=== PATIENT | female | born 1990 ===

== ENCOUNTER 2018-05-26 00:22 | Emergency (ER) | payer SELFPAY ==
[2018-05-26] MEDS ORDERED: BENADRYL ONE (00:37)
[2018-05-26] MEDS ORDERED: PEPCID IV ONE ×2 (00:38→00:54)
[2018-05-26] MEDS ORDERED: BENADRYL IV ONE (00:53)
[2018-05-26] MEDS ORDERED: NACL 0.9% 500 ML 500 ML IV ONE (00:58)
[2018-05-26] MEDS ORDERED: TYLENOL PO ONE (01:59)
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
[2018-05-26 03:41] VITALS: BP 109/68
== END 2018-05-26 03:49 | disposition home or self-care (01) ==
LOC: ED 00:22
DX: O26.892 Other specified pregnancy related conditions, second trimester (principal); T65.91XA Toxic effect of unspecified substance, accidental (unintentional), initial encounter; T78.2XXA Anaphylactic shock, unspecified, initial encounter; Z3A.20 20 weeks gestation of pregnancy; Y92.89 Other specified places as the place of occurrence of the external cause
CPT/HCPCS: 96374; 96375; 99291; J1200; J2930; J7040

== ENCOUNTER 2019-08-04 16:49 | Emergency (ER) | payer MEDICAID, OTHER | END 2019-08-04 17:00 | disposition left against medical advice (07) | LOC: ED 16:49 | DX: F41.9 Anxiety disorder, unspecified (principal); Z53.21 Procedure and treatment not carried out due to patient leaving prior to being seen by health care provider ==

== ENCOUNTER 2020-04-29 20:47 | Emergency (ER) | payer MEDICAID, OTHER ==
--- NOTE | 2020-04-29 21:18 | Emergency Department Report ---
<IGOR RAY - Last Filed: 05/01/20 16:39> ED Psych HPI - General Chief Complaint: Psych Stated Complaint: MH/HEARING VOICES Time Seen by Provider: 04/29/20 21:05 Source: patient, EMS Mode of arrival: Ambulatory - History of Present Illness Initial Comments: Patient is 29 years old female with history of schizophrenia. Patient brought to the emergency room via EMS for evaluation of altered mental status. Patient with significant auditory and visual hallucination. EMS stated that there is a possibility of methamphetamine intoxication. During my interview with the patient patient kept talking to herself and looking around. Patient is ob viously responding to internal stimuli. Patient denied any suicidal or homicidal ideation. MD Complaint: altered mental status -: unknown Associated Psychiatric Symptoms: racing thoughts, auditory hallucinations, visual hallucinations - Related Data Previous Rx's Medication Instructions Recorded Last Taken Type Divalproex Dr [DepaKOTE DR] 125 mg PO BID #60 tablet 05/02/20 Unknown Rx Sulfamethoxazole/Trimethoprim 1 each PO Q12HR #7 tablet 05/02/20 Unknown Rx [Bactrim DS TAB] risperiDONE [RisperDAL] 0.25 mg PO BID #60 tab 05/02/20 Unknown Rx traZODone [Desyrel] 50 mg PO QHS #30 tab 05/02/20 Unknown Rx Allergies Allergy/AdvReac Type Severity Reaction Status Date / Time No Known Allergies Allergy Unverified 05/26/18 00:29 ED Review of Systems Comment: Unobtainable due to pts medical conditions ED Past Medical Hx - Past Medical History Hx Psychiatric Treatment: Yes (drug abuse, bipolar, schizophrenia) Hx Asthma: Yes Additional medical history: anxiety. manic depression. post depression - Surgical History Past Surgical History?: Yes Additional Surgical History: x 1. T&A - Social History Smoking Status: Current Every Day Smoker Substance Use Type: Alcohol, Methamphetamines - Medications Home Medications: Home Medications Medication Instructions Recorded Confirmed Last Taken Type Divalproex Dr [DepaKOTE DR] 125 mg PO BID #60 tablet 05/02/20 Unknown Rx Sulfamethoxazole/Trimethoprim 1 each PO Q12HR #7 tablet 05/02/20 Unknown Rx [Bactrim DS TAB] risperiDONE [RisperDAL] 0.25 mg PO BID #60 tab 05/02/20 Unknown Rx traZODone [Desyrel] 50 mg PO QHS #30 tab 05/02/20 Unknown Rx ED Physical Exam - General Limitations: Altered Mental Status General appearance: alert, in no apparent distress, anxious - Head Head exam: Present: atraumatic, normocephalic, normal inspection - Eye Eye exam: Present: normal appearance - ENT ENT exam: Present: normal exam, normal orophraynx, mucous membranes moist - Neck Neck exam: Present: normal inspection, full ROM. Absent: tenderness, meningismus, lymphadenopathy, thyromegaly - Respiratory Respiratory exam: Present: normal lung sounds bilaterally - Cardiovascular Cardiovascular Exam: Present: regular rate, normal rhythm, normal heart sounds - GI/Abdominal GI/Abdominal exam: Present: soft, normal bowel sounds. Absent: distended, ten derness, guarding, rebound, rigid, organomegaly, bruit, hernia - Extremities Exam Extremities exam: Present: normal inspection, full ROM, normal capillary refill. Absent: pedal edema, calf tenderness - Back Exam Back exam: Present: normal inspection, full ROM. Absent: CVA tenderness (R), CVA tenderness (L) - Neurological Exam Neurological exam: Present: alert, oriented X3, CN II-XII intact, normal gait, reflexes normal. Absent: motor sensory deficit - Psychiatric Psychiatric exam: Present: anxious. Absent: homicidal ideation, suicidal ideation - Skin Skin exam: Present: warm, intact, normal color ED Medical Decision Making - Lab Data Result diagrams: 04/29/20 21:11 04/29/20 21:11 ED Disposition Clinical Impression: Schizophrenia, Methamphetamine abuse, UTI (urinary tract infection) Disposition: TO HOME OR SELFCARE Condition: Stable Instructions: Schizophrenia (ED), Urinary Tract Infection in Women (ED), Methamphetamine Abuse (ED) Additional Instructions: Take the medication as prescribed. Follow-up with your doctor or doctor/clinic provided. Return if symptoms worsen as indicated by your discharge instructions. Prescriptions: Sulfamethoxazole/Trimethoprim [Bactrim DS TAB] 1 each PO Q12HR #[address] [DepaKOTE DR] 125 mg PO BID #60 tablet traZODone [Desyrel] 50 mg PO QHS #30 tab risperiDONE [RisperDAL] 0.25 mg PO BID #60 tab Referrals: SVEN CRUZ MD [Primary Care Provider] - 3-5 Days CARBUCCIA,KE, MD [Staff Physician] - 3-5 Days [facility] [Provider Group] - 3-5 Days [facility] [Outside] - 3-5 Days <JOAO ROBERT - Last Filed: 05/02/20 13:28> ED Review of Systems ROS: Stated complaint: MH/HEARING VOICES Other details as noted in HPI ED Course Vital Signs 04/29/20 04/30/20 04/30/20 20:57 01:04 09:11 Temperature 98.3 F 99.2 F Pulse Rate 72 90 78 Respiratory 20 18 18 Rate Blood Pressure 147/96 Blood Pressure 109/88 129/80 [Left] O2 Sat by Pulse 98 98 98 Oximetry 04/30/20 04/30/20 05/01/20 15:29 20:02 02:05 Temperature 98.4 F 98.1 F 98.0 F Pulse Rate 106 H 108 H 92 H Respiratory 18 18 18 Rate Blood Pressure Blood Pressure 113/74 128/83 120/60 [Left] O2 Sat by Pulse 98 97 98 Oximetry 05/01/20 05/01/20 05/01/20 07:33 16:28 19:38 Temperature 97.4 F L 98.2 F 97.8 F Pulse Rate 104 H 98 H 107 H Respiratory 104 H 18 19 Rate Blood Pressure Blood Pressure 90/54 95/71 114/65 [Left] O2 Sat by Pulse 100 98 98 Oximetry 05/02/20 05/02/20 01:16 09:34 Temperature 97.6 F 98.4 F Pulse Rate 73 97 H Respiratory 16 16 Rate Blood Pressure Blood Pressure 99/60 114/66 [Left] O2 Sat by Pulse 100 97 Oximetry - Reevaluation(s) Reevaluation #1: 05/02/20 13:28 Patient does not qualify for inpatient psychiatric treatment and will be discharged with meds for UTI and psychiatric medications as prescribed by mental nurse practitioner ED Medical Decision Making - Lab Data Result diagrams: 04/29/20 21:11 04/29/20 21:11 Critical care attestation.: If time is entered above; I have spent that time in minutes in the direct care of this critically ill patient, excluding procedure time. ED Disposition Is pt being admited?: No Does the pt Need Aspirin: No Time of Disposition: 13:27
[2020-04-29 21:25] LABS: Basophils # (Auto) 0.1 K/mm3 (0.0-0.1); Basophils % (Auto) 0.8 % (0.0-1.8); Eosinophils % (Auto) 0.4 % (0.0-4.3); Hematocrit 38.8 % (30.3-42.9); Hemoglobin 12.9 gm/dl (10.1-14.3); Lymphocytes # (Auto) 2.2 K/mm3 (1.2-5.4); Lymphocytes % (Auto) 23.4 % (13.4-35.0); Mean Corpuscular HGB Conc 33 % (30-34); Mean Corpuscular Volume 78 fl (79-97); Monocytes # (Auto) 0.8 K/mm3 (0.0-0.8); Monocytes % (Auto) 8.6 % (0.0-7.3); Platelet Count 304 K/mm3 (140-440); Red Blood Count 4.98 M/mm3 (3.65-5.03); Red Cell Distribution Width 15.9 % (13.2-15.2)
[2020-04-29 21:49] LABS: BUN/Creatinine Ratio 20; Blood Urea Nitrogen 14 mg/dL (7-17); Calcium 9.7 mg/dL (8.4-10.2); Hemolysis Index 11
[2020-04-30 00:26] LABS: Bacteria,Urine 1+ /HPF (Negative); Bilirubin,Urine NEG (Negative); Blood,Urine NEG (Negative); Color,Urine Yellow (Yellow); Mucus,Urine FEW /HPF; Urobilinogen,Urine < 2.0 mg/dL (<2.0)
[2020-04-30 00:36] LABS: Benzodiazepines Screen,Urine PRESUMPTIVE NEGATIVE; Cannabinoid Screen,Urine PRESUMPTIVE NEGATIVE; Cocaine Screen,Urine PRESUMPTIVE NEGATIVE; Methadone Screen,Urine PRESUMPTIVE NEGATIVE; Opiate Screen,Urine PRESUMPTIVE NEGATIVE
[2020-04-30 01:07] LABS: Amphetamine Screen,Urine PRESUMPTIVE POSITIVE
[2020-04-30] MEDS ORDERED: POTASSIUM CHLORIDE ER 20 MEQ TAB PO ONE ×2 (02:05→11:53)
[2020-04-30] MEDS: SULFAMETHOXAZOLE/TRIMETHOPRIM 800/160MG DS TAB PO SCH ×2 (11:00→21:40)
[2020-04-30] MEDS ORDERED: LORazepam 2 MG/ML VIAL IM ONE (19:03)
[2020-04-30] MEDS ORDERED: LORazepam 2 MG/ML VIAL IV ONE (19:03)
[2020-04-30] MEDS ORDERED: LORazepam 2 MG/ML VIAL ONE (19:05)
[2020-04-30] MEDS ORDERED: IBUPROFEN 600 MG TAB PO ONE ×2 (20:33→20:35)
[2020-04-30] MEDS ORDERED: diphenhydrAMINE 25 MG CAP PO ONE ×2 (21:37→21:39)
[2020-05-01] MEDS: risperiDONE 0.25 MG TAB PO SCH ×2 (11:00→21:46)
[2020-05-01] MEDS: DIVALPROEX DR 125 MG TAB PO SCH ×3 (11:00→21:44)
[2020-05-01] MEDS: SULFAMETHOXAZOLE/TRIMETHOPRIM 800/160MG DS TAB PO SCH ×2 (11:00→21:45)
--- NOTE | 2020-05-01 11:22 | Consultation ---
History of Present Illness - Reason for Consult Consult date: 05/01/20 Reason for consult: meth induced psychosis - History of Present Psychiatric Illness The patient's medical record was reviewed and the patient's progress was discussed with the nursing staff. The nurse caring for the patient today, states the patient was down last night and crying uncontrollably. She says the patient wouldn't say why she was down. Fabienne Snyder is a 29y/o female who came into the ER for altered mental status with auditory and visual hallucinations, per chart. I attempted to interview the patient his morning, she was lying down sleeping. She arouses but kept her eyes closed. She would not speak or answer any of the interview questions. PAST PSYCHIATRIC HISTORY Unable to obtain PAST MEDICAL HISTORY: Unable to obtain Family Psychiatric History: Unable to obtain SOCIAL HISTORY Unable to obtain ROS Unable to assess MENTAL STATUS EXAMINATION Unable to assess Assessment and Plan Substance Induced Mood Disorder RECOMMENDATIONS MEDICATIONS Risperidone 0.25mg po BID Depakote DR 125mg po BID Trazodone 50mg po qhs Vistaril 25mg po q6h prn anxiety Geodon 10mg IM q4h prn agitation Risks, benefits and alternatives of medications discussed with the patient, questions answered and consent obtained from patient. PSYCHOTHERAPY: Supportive psychotherapy provided MEDICAL: Per primary team DELIRIUM PRECAUTIONS: Please re-orient patient frequently, keep lights on during the day, and minimize benzodiazepines and opiates as these medications could worsen patient's confusion. PUPIL PERSONNEL SERVICES DIRECTOR: Per medical team DISPOSITION: The patient meets the requirement for acute inpatient psychiatric treatment. She may transfer to an acute facility once medically clear Will continue to follow until the patient is transferred or improves enough for discharge. Thank you for the consult. Please contact with any questions and/or concerns Medications and Allergies Allergies Allergy/AdvReac Type Severity Reaction Status Date / Time No Known Allergies Allergy Unverified 05/26/18 00:29 Home Medications Medication Instructions Recorded Confirmed Last Taken Type Unobtainable 04/30/20 04/30/20 Unknown History Active Meds: Active Medications Trimethoprim/Sulfamethoxazole (Bactrim Ds) 1 each PO Q12HR KAIRNA Last Admin: 04/30/20 21:40 Dose: 1 each Documented by: Mental Status Exam - Vital signs Last Vital Signs Temp 97.4 F L 05/01/20 07:33 Pulse 104 H 05/01/20 07:33 Resp 104 H 05/01/20 07:33 BP 90/54 05/01/20 07:33 Pulse Ox 100 05/01/20 07:33 Results Result Diagrams: 04/29/20 21:11 04/29/20 21:11 All other labs normal.
[2020-05-01] MEDS ORDERED: ZIPRASIDONE MESYLATE 20 MG VIAL IM PRN (11:27)
[2020-05-01] MEDS ORDERED: hydrOXYzine PAMOATE 25 MG CAP PO PRN (11:31)
[2020-05-01] MEDS ORDERED: traZODone 50 MG TAB PO SCH (22:00)
[2020-05-02 09:36] VITALS: BP 114/66
[2020-05-02] MEDS: SULFAMETHOXAZOLE/TRIMETHOPRIM 800/160MG DS TAB PO SCH (11:04)
[2020-05-02] MEDS: DIVALPROEX DR 125 MG TAB PO SCH (11:04)
[2020-05-02] MEDS: risperiDONE 0.25 MG TAB PO SCH (11:05)
--- NOTE | 2020-05-02 11:26 | Progress Note ---
Subjective - Reason for Consult Consult date: 05/02/20 Reason for consult: meth induced psychosis - Chief Complaint Chief complaint: During my interview with the patient this morning, she is lying down asleep. She easily arouses. She is a/o x 3. She is avoidant. She is irritable. She turns her head when I'm speaking to her or places the linen over her head. She says, "I'm tired and I'm trying to sleep." She describes her mood as "okay." She denies SI/HI or any thoughts of dying. She also denies hallucinations of any kind. When informing the patient that she would be going home today, the patient replies, "I don't care. I'm trying to sleep." ROS Constitutional: Negative for weight loss EMT: Negative for stridor Respiratory: Negative for cough or hemoptysis All other systems reviewed and are negative MENTAL STATUS EXAMINATION General Appearance: Dressed Appropriately Behavior: Avoidant. Irritable. Mood: "okay" Affect: Congruent with stated mood Speech: Normal pace and tone Thought Process: Goal oriented Suicidal Ideation: Denies Homicidal Ideation: Denies Hallucinations: Denies Delusions: None elicited Insight and Judgment: Limited Memory/Cognition: Limited Assessment and Plan Drug Induced Mood Disorder RECOMMENDATIONS D/c 1013 MEDICATIONS Risperidone 0.25mgm po BID Trazodone 50mg po qhs Depakote DR 125mg po BID Risks, benefits and alternatives of medications discussed with the patient, questions answered and consent obtained from patient. PSYCHOTHERAPY: Supportive psychotherapy provided MEDICAL: Per primary team DELIRIUM PRECAUTIONS: Please re-orient patient frequently, keep lights on during the day, and minimize benzodiazepines and opiates as these medications could worsen patient's confusion. PHARMACEUTICAL BOTANIST: Per medical team DISPOSITION: The patient does not meet the requirement for acute inpatient psychiatric treatment. She may discharge home once medically clear. She understa nds that if suicidal thoughts or feelings of endangerment are to arise she is to seek immediate assistance including but not limited to the crisis hotline, 911 and/or ER. She is to abstain from all illicit drug use. The log operations coordinator is to further discuss safety plan with the patient and give her resources for outpatient psychiatry, cognitive behavior therapy and drug rehabilitation programs. The treatment plan was discussed with the patient, including benefits of medications and possible side effects. The patient verbalizes understanding. Will sign off. Thank you for the consult. Please contact with any questions and/or concerns. Mental Status Exam - Vital signs Last Vital Signs Temp 98.4 F 05/02/20 09:34 Pulse 97 H 05/02/20 09:34 Resp 16 05/02/20 09:34 BP 114/66 05/02/20 09:34 Pulse Ox 97 05/02/20 09:34
== END 2020-05-02 14:06 | disposition home or self-care (01) ==
LOC: EEVIPCON 20:47 → ED 20:47
DX: F20.89 Other schizophrenia (principal); N39.0 Urinary tract infection, site not specified; F15.10 Other stimulant abuse, uncomplicated; J45.909 Unspecified asthma, uncomplicated; F41.9 Anxiety disorder, unspecified; F17.200 Nicotine dependence, unspecified, uncomplicated; Z98.890 Other specified postprocedural states
CPT/HCPCS: 36415; 80048; 80307; 81001; 84703; 85025; 87086; 96372; 99283; J2060; 80320; G0480; Q0177

== ENCOUNTER 2022-05-20 09:50 | Emergency (ER) | payer SELFPAY ==
[2022-05-20] MEDS ORDERED: HALOPERIDOL LACTATE 5 MG/1 ML INJ ONE (16:18)
[2022-05-20] MEDS ORDERED: diphenhydrAMINE 50 MG/ML VIAL ONE (16:18)
[2022-05-20] MEDS ORDERED: LORazepam 2 MG/ML VIAL ONE (16:18)
[2022-05-20] MEDS ORDERED: diphenhydrAMINE 50 MG/ML VIAL IM ONE (16:22)
[2022-05-20] MEDS ORDERED: HALOPERIDOL LACTATE 5 MG/1 ML INJ IM PRN (16:22)
[2022-05-20] MEDS ORDERED: LORazepam 2 MG/ML VIAL IM PRN (16:22)
--- NOTE | 2022-05-20 16:33 | Emergency Department Report ---
ED General Adult HPI - General Chief complaint: Psych Stated complaint: KIDNEY INFECTION/DEPRESSION Time Seen by Provider: 05/20/22 16:22 Source: patient, RN notes reviewed, old records reviewed Mode of arrival: Ambulatory Limitations: Other (Acute psychosis) - History of Present Illness Initial comments: The patient was evaluated in the emergency department for symptoms described in the history of present illness. He/she was evaluated in the context of the global COVID-19 pandemic, which necessitated consideration that the patient might be at risk for infection with the virus that causes COVID-19. Institutional protocols and algorithms that pertain to the evaluation of patients at risk for COVID-19 are in a state of rapid change based on info rmation released by regulatory bodies including the CDC and federal and state organizations. These policies and algorithms were followed during the patient's care in the emergency department. Please note that these policies, procedures and recommendations changed on a rapid basis. This is a 31-year-old female. She presents as acutely psychotic. She is accompanied by her grandmother Ms. Berman; [phone]. Her grandmother endorses that the patient has a history of bipolar, psychosis, and m ethamphetamine abuse. The patient has been with her grandmother for about 2 days, and has been acting psychotic. The patient is noncompliant with her medications as per her grandmother. As per her grandmother, there is no trauma, vomiting, diarrhea, cough The patient in emergency room is agitated, belligerent, uncooperative, and psychotic. She does not describe the qualitative nature of her symptoms, exacerbating factors relieving factors or aggravating factors. Review of systems is as per grandmother -: days(s) - Related Data Previous Rx's Medication Instructions Recorded Last Taken Type Divalproex Dr [DepaKOTE DR] 125 mg PO BID #60 tablet 05/02/20 Unknown Rx Sulfamethoxazole/Trimethoprim 1 each PO Q12HR #7 tablet 05/02/20 Unknown Rx [Bactrim DS TAB] risperiDONE [RisperDAL] 0.25 mg PO BID #60 tab 05/02/20 Unknown Rx traZODone [Desyrel] 50 mg PO QHS #30 tab 05/02/20 Unknown Rx Allergies Allergy/AdvReac Type Severity Reaction Status Date / Time No Known Allergies Allergy Unverified 05/26/18 00:29 ED Review of Systems ROS: Stated complaint: KIDNEY INFECTION/DEPRESSION Other details as noted in HPI Comment: Unobtainable due to pts medical conditions (Review of systems as per grandmother) Psychiatric: as per HPI, other (Hallucinations, agitation, psychosis) ED Past Medical Hx - Past Medical History Hx Psychiatric Treatment: Yes (drug abuse, bipolar, schizophrenia) Hx Asthma: Yes Additional medical history: anxiety. manic depression. post depression - Surgical History Additional Surgical History: x 1. T&A - Social History Smoking Status: Current Every Day Smoker Substance Use Type: Alcohol, Methamphetamines - Medications Home Medications: Home Medications Medication Instructions Recorded Confirmed Last Taken Type Divalproex Dr [DepaKOTE DR] 125 mg PO BID #60 tablet 05/02/20 Unknown Rx Sulfamethoxazole/Trimethoprim 1 each PO Q12HR #7 tablet 05/02/20 Unknown Rx [Bactrim DS TAB] risperiDONE [RisperDAL] 0.25 mg PO BID #60 tab 05/02/20 Unknown Rx traZODone [Desyrel] 50 mg PO QHS #30 tab 05/02/20 Unknown Rx ED Physical Exam - General Limitations: Other (Agitation and psychosis) General appearance: anxious - Head Head exam: Present: atraumatic, normocephalic - Eye Eye exam: Present: normal appearance, EOMI. Absent: nystagmus - ENT ENT exam: Present: normal exam, normal orophraynx, mucous membranes moist, normal external ear exam - Neck Neck exam: Present: normal inspection, full ROM. Absent: tenderness, meningismus - Respiratory Respiratory exam: Present: normal lung sounds bilaterally. Absent: respiratory distress, wheezes, rales, rhonchi, stridor, decreased breath sounds - Cardiovascular Cardiovascular Exam: Present: regular rate, normal rhythm, normal heart sounds. Absent: bradycardia, tachycardia, irregular rhythm, systolic murmur, diastolic murmur, rubs, gallop - GI/Abdominal GI/Abdominal exam: Present: soft. Absent: distended, tenderness, guarding, nataliya ound, rigid, pulsatile mass - Extremities Exam Extremities exam: Present: full ROM, other (2+ pulses noted in the bilateral upper and lower extremities. There is no palpable cord. negative Homans sign. Muscular compartments are soft. The pelvis is stable.). Absent: normal inspection (Numerous chronic appearing skin wounds and track flaherty noted), pedal edema, calf tenderness - Back Exam Back exam: Present: normal inspection. Absent: tenderness, CVA tenderness (R), CVA tenderness (L), muscle spasm, paraspinal tenderness, vertebral tenderness - Neurological Exam Neurological exam: Present: normal gait, other (There is no facial droop. The tongue is midline. 5 out of 5 strength in 4 extremities.) - Psychiatric Psychiatric exam: Present: agitated, anxious - Skin Skin exam: Present: warm ED Course Vital Signs 05/20/22 05/20/22 10:22 16:59 Temperature 98.3 F Pulse Rate 98 H Respiratory 18 Rate Blood Pressure 117/87 [Right] O2 Sat by Pulse 100 97 Oximetry - Reevaluation(s) Reevaluation #1: 05/20/22 16:41 Differential diagnosis, including but not limited to: Agitation, psychosis, methamphetamine abuse, overdose, medical clearance for psychiatric placement Assessment and plan: 31-year-old female with known history of psychosis, noncompliance, methamphetamine abuse, presents is acutely psychotic. I have ordered a 1013. Recommended appropriate laboratory studies. Physical examination is noncontributory. Grandmother endorses no history of trauma that she is aware of. Discussed need for 1013 with grandmother, as well as need for chemical and/or physical restraints. Grandmother provides verbal consent for the aforementioned. Reassess after laboratory studies have resulted. Patient required medication with haloperidol, Ativan, and Benadryl 05/20/22 17:49 Patient is reassessed. Examined with deboning team leader Ronit She is eating Jell-O and feels improved. There is no CVA tenderness. Laboratory studies are essentially unremarkable. She is somewhat hemocon centrated, mildly dehydrated, and has mild hypokalemia. Start patient on daily multivitamin, potassium and magnesium supplementation. Urinalysis and drug screen and COVID swab pending. The emergency room will follow along as the patient provides these. Her muscular compartments are soft. Her renal function is unremarkable. I do not suspect rhabdomyolysis at this time. At this point in time, this patient does not appear to have an immediate medical contraindication to psychiatric admission, evaluation, consultation and placement. Contacted patient's grandmother, and advised her of results of laboratory studies. She endorsed understanding. All questions answered 05/20/22 19:49 Urinalysis contaminated with epithelial cells. The patient made no complaint of dysuria to myself. She also has RBCs. This is most likely from menstruation. Would not initiate antibiotics at this ED Medical Decision Making - Lab Data Result diagrams: 05/20/22 16:38 05/20/22 16:38 Vital Signs 05/20/22 10:22 Temperature 98.3 F Pulse Rate 98 H Respiratory 18 Rate Blood Pressure 117/87 [Right] O2 Sat by Pulse 100 Oximetry Labs 05/20/22 05/20/22 05/20/22 16:38 16:38 16:38 WBC 7.2 RBC 5.92 H Hgb 15.5 H Hct 47.1 H MCV 80 MCH 26 L MCHC 33 RDW 18.0 H Plt Count 323 Sodium 137 Potassium 3.2 L Chloride 96.7 L Carbon Dioxide 22 Anion Gap 22 BUN 10 Creatinine 0.7 Estimated GFR > 60 BUN/Creatinine Ratio 14 Glucose 111 H Calcium 10.5 H Total Bilirubin 0.70 AST 15 ALT 11 Alkaline Phosphatase 88 Total Protein 8.5 H Albumin 5.2 H Albumin/Globulin Ratio 1.6 TSH 1.610 HCG, Qual Salicylates Acetaminophen Valproic Acid 05/20/22 05/20/22 05/20/22 16:38 16:38 16:38 WBC RBC Hgb Hct MCV MCH MCHC RDW Plt Count Sodium Potassium Chloride Carbon Dioxide Anion Gap BUN Creatinine Estimated GFR BUN/Creatinine Ratio Glucose Calcium Total Bilirubin AST ALT Alkaline Phosphatase Total Protein Albumin Albumin/Globulin Ratio TSH HCG, Qual Negative Salicylates < 0.3 L Acetaminophen 5.0 L Valproic Acid < 2.8 L Critical care attestation.: If time is entered above; I have spent that time in minutes in the direct care of this critically ill patient, excluding procedure time. ED Disposition Clinical Impression: Psychosis, Methamphetamine abuse, Medical clearance for psychiatric admission, Dehydration, Hypokalemia Disposition: [address] [place] [address] Is pt being admited?: No Does the pt Need Aspirin: No Condition: Good Referrals: PRIMARY CARE, [Primary Care Provider] - 3-5 Days
[2022-05-20 17:00] LABS: Hematocrit 47.1 % (30.3-42.9); Hemoglobin 15.5 gm/dl (10.1-14.3); Mean Corpuscular HGB Conc 33 % (30-34); Mean Corpuscular Volume 80 fl (79-97); Platelet Count 323 K/mm3 (140-440); Red Blood Count 5.92 M/mm3 (3.65-5.03)
[2022-05-20 17:22] LABS: Alanine Aminotransferase 11 units/L (7-56); Albumin 5.2 g/dL (3.9-5); Blood Urea Nitrogen 10 mg/dL (7-17); Calcium 10.5 mg/dL (8.4-10.2); Hemolysis Index 1
[2022-05-20 17:23] LABS: BUN/Creatinine Ratio 14
[2022-05-20] MEDS ORDERED: MULTIVITAMINS ,THERAPEUTIC TAB PO ONE (17:46)
[2022-05-20] MEDS ORDERED: POTASSIUM CHLORIDE ER 20 MEQ TAB PO ONE (17:46)
[2022-05-20] MEDS: MAGNESIUM OXIDE 400 MG TAB PO SCH (18:32)
[2022-05-20 19:23] LABS: Bilirubin,Urine NEG (Negative); Blood,Urine LG (Negative); Color,Urine Red (Yellow)
[2022-05-20 19:32] LABS: Amphetamine Screen,Urine PRESUMPTIVE POSITIVE; Benzodiazepines Screen,Urine PRESUMPTIVE NEGATIVE; Cannabinoid Screen,Urine PRESUMPTIVE POSITIVE; Cocaine Screen,Urine PRESUMPTIVE NEGATIVE; Methadone Screen,Urine PRESUMPTIVE NEGATIVE; Opiate Screen,Urine PRESUMPTIVE NEGATIVE
[2022-05-20 19:37] LABS: Mucus,Urine 3+ /HPF
[2022-05-20 19:41] LABS: RBC,Urine > 182.0 /HPF (0.0-6.0)
[2022-05-20] MEDS: MULTIVITAMINS ,THERAPEUTIC TAB PO SCH (20:00)
[2022-05-21] MEDS: MAGNESIUM OXIDE 400 MG TAB PO SCH (09:51)
[2022-05-21] MEDS: MULTIVITAMINS ,THERAPEUTIC TAB PO SCH (09:51)
[2022-05-21] MEDS ORDERED: POTASSIUM CHLORIDE ER 20 MEQ TAB PO SCH (10:00)
[2022-05-21 10:13] VITALS: BP 93/58
--- NOTE | 2022-05-21 11:22 | Event Note ---
Date: 05/21/22 medically cleared , vss , no events overnight accepted by psyc facility
--- NOTE | 2022-05-21 11:54 | Consultation ---
History of Present Illness - Reason for Consult Consult date: 05/21/22 Reason for consult: mental health evaluation - History of Present Psychiatric Illness HPI: This is a 31-year-old female. She presents as acutely psychotic. She is accompanied by her grandmother Ms. Berman; [phone]. Her grandmother endorses that the patient has a history of bipolar, psychosis, and methamphetamine abuse. The patient has been with her grandmother for about 2 days, and has been acting psychotic. The patient is noncompliant with her medications as per her grandmother. As per her grandmother, there is no trauma, vomiting, diarrhea, cough The patient is a 31 year old female with bipolar and methamphetamine abuse. The patient was seen today. She is alert and oriented to self. She is not cooperative with assessment, she is refusing to answer questions. PAST PSYCHIATRIC HISTORY PAST MEDICAL HISTORY: none reported Family Psychiatric History: None reported or documented SOCIAL HISTORY REVIEW OF SYSTEMS MENTAL STATUS EXAMINATION Assessment and Plan (1)Hx Methamphetamine Use disorder (2) HX of Bipolar Treatment Continue home meds. Zyprexa 5mg po BID Sitter: Per primary Medical: Per primary Disposition: Recommend acute inpatient psychiatric treatment. Will follow. Thanks Case staffed with Dr. Harper Medications and Allergies Allergies Allergy/AdvReac Type Severity Reaction Status Date / Time No Known Allergies Allergy Unverified 05/26/18 00:29 Home Medications Medication Instructions Recorded Confirmed Last Taken Type Divalproex [Katie PINTO] 125 mg PO BID #60 tablet 05/02/20 Unknown Rx Sulfamethoxazole/Trimethoprim 1 each PO Q12HR #7 tablet 05/02/20 Unknown Rx [Bactrim DS TAB] risperiDONE [RisperDAL] 0.25 mg PO BID #60 tab 05/02/20 Unknown Rx traZODone [Desyrel] 50 mg PO QHS #30 tab 05/02/20 Unknown Rx Active Meds: Active Medications Haloperidol Lactate (Haloperidol Lactate 5 Mg/1 Ml Inj) 5 mg IM Q6HR PRN PRN Reason: Agitation Last Admin: 05/20/22 16:25 Dose: 5 mg Lorazepam (Lorazepam 2 Mg/Ml Vial) 2 mg IM Q4HR PRN PRN Reason: Agitation Last Admin: 05/20/22 16:25 Dose: 2 mg Magnesium Oxide (Magnesium Oxide 400 Mg Tab) 400 mg PO QDAY KARINA Last Admin: 05/21/22 09:51 Dose: Not Given Multivitamins (Multivitamins ,Therapeutic Tab) 1 each PO QDAY [facility] Last Admin: 05/21/22 09:51 Dose: Not Given Potassium Chloride (Potassium Chloride Er 20 Meq Tab) 40 meq PO QDAY [facility] Last Admin: 05/21/22 09:50 Dose: Not Given Mental Status Exam - Vital signs Last Vital Signs Temp 98.3 F 05/21/22 10:12 Pulse 88 05/21/22 10:12 Resp 18 05/21/22 10:12 BP 93/58 05/21/22 10:12 Pulse Ox 96 05/21/22 10:12 Results Result Diagrams: 05/20/22 16:38 05/20/22 16:38 Abnormal lab results 05/20/22 05/20/22 05/20/22 Range/Units 16:38 16:38 16:38 RBC 5.92 H (3.65-5.03) M/mm3 Hgb 15.5 H (10.1-14.3) gm/dl Hct 47.1 H (30.3-42.9) % MCH 26 L (28-32) pg RDW 18.0 H (13.2-15.2) % Potassium 3.2 L (3.6-5.0) mmol/L Chloride 96.7 L (98-107) mmol/L Glucose 111 H (65-100) mg/dL Calcium 10.5 H (8.4-10.2) mg/dL Total Protein 8.5 H (6.3-8.2) g/dL Albumin 5.2 H (3.9-5) g/dL Urine WBC (Auto) (0.0-6.0) /HPF U Epithel Cells (Auto) (0-13.0) /HPF Salicylates < 0.3 L (2.8-20.0) mg/dL Acetaminophen (10.0-30.0) ug/mL Valproic Acid < 2.8 L (50-100) ug/mL 05/20/22 05/20/22 Range/Units 16:38 18:07 RBC (3.65-5.03) M/mm3 Hgb (10.1-14.3) gm/dl Hct (30.3-42.9) % MCH (28-32) pg RDW (13.2-15.2) % Potassium (3.6-5.0) mmol/L Chloride (98-107) mmol/L Glucose (65-100) mg/dL Calcium (8.4-10.2) mg/dL Total Protein (6.3-8.2) g/dL Albumin (3.9-5) g/dL Urine WBC (Auto) 97.0 H (0.0-6.0) /HPF U Epithel Cells (Auto) 14.0 H (0-13.0) /HPF Salicylates (2.8-20.0) mg/dL Acetaminophen 5.0 L (10.0-30.0) ug/mL Valproic Acid (50-100) ug/mL All other labs normal.
== END 2022-05-21 14:19 ==
LOC: ED 09:50
DX: F29 Unspecified psychosis not due to a substance or known physiological condition (principal); F15.20 Other stimulant dependence, uncomplicated; E86.0 Dehydration; E87.6 Hypokalemia; F17.200 Nicotine dependence, unspecified, uncomplicated; J45.909 Unspecified asthma, uncomplicated; Z20.822 Contact with and (suspected) exposure to COVID-19; Z79.899 Other long term (current) drug therapy
CPT/HCPCS: 36415; 80053; 80164; 80307; 81001; 84443; 84703; 85027; 87076; 87086; 87186; 96372; 99285; J1200; J1630; J2060; U0003; 80320; G0480